=== PATIENT | female | born 1995 ===

== ENCOUNTER 2017-06-08 19:35 | Emergency (ER) | payer MEDICAID, OTHER ==
[2017-06-08 19:36] VITALS: BMI 47.8
[2017-06-08 19:49] VITALS: TEMP 97.7; O2SAT 97
[2017-06-08] MEDS ORDERED: Lidocaine 5% Patch TD STA (20:08)
[2017-06-08] MEDS ORDERED: Lidocaine 5% Patch TD ONE (20:14)
--- NOTE | 2017-06-08 20:31 | C.PDOC ---
History Of Present Illness 21 y/o female comes in for evaluation of lower back pain for 1 week. Patient is unsure of how the symptoms began. Patient was seen [facility] and was prescribed Flexeril and Ibuprofen with no relief. Patient also notes bruising to the left leg with an unknown cause. Denies fall, weakness, or numbness. No urinary symptoms. Time Seen by Provider: 06/08/17 19:56 Chief Complaint (Nursing): Medical Clearance History Per: Patient History/Exam Limitations: no limitations Onset/Duration Of Symptoms: Days Current Symptoms Are (Timing): Still Present Severity: Mild Recent travel outside of the [place]: No Additional History Per: Patient Past Medical History Reviewed: Historical Data, Nursing Documentation, Vital Signs Vital Signs: Last Vital Signs Temp 97.7 F 06/08/17 19:44 Pulse 69 06/08/17 20:36 Resp 20 06/08/17 20:36 BP 122/71 06/08/17 20:36 Pulse Ox 97 06/08/17 21:16 - Medical History PMH: HTN Surgical History: Tonsillectomy - [facility] MONITORING NOS (12/07/13) LOW CERVICAL (01/15/14) Family History: States: Unknown Family Hx - Social History Hx Alcohol Use: No Hx Substance Use: No - Immunization History Hx Tetanus Toxoid Vaccination: No Hx Influenza Vaccination: No Hx Pneumococcal Vaccination: No Review Of Systems Except As Marked, All Systems Reviewed And Found Negative. Constitutional: Negative for: Other (Fall) Genitourinary: Negative for: Dysuria, Frequency, Incontinence, Hematuria Musculoskeletal: Positive for: Back Pain (Lower back pain) Neurological: Negative for: Weakness, Numbness Physical Exam - Physical Exam Appears: Non-toxic, No Acute Distress, Other (Morbidly obese) Skin: Warm, Dry Head: Atraumatic, Normacephalic Eye(s): bilateral: Normal Inspection, EOMI Neck: Normal ROM Chest: Symmetrical Cardiovascular: Rhythm Regular, No Murmur Respiratory: Normal Breath Sounds, No Wheezing Back: Normal Inspection, No CVA Tenderness, No Vertebral Tenderness, Paraspinal Tenderness (lumbar) Extremity: Normal ROM, Capillary Refill, Other (varicose veins to the bilateral legs and ecchymosis to the bilateral legs) Pulses: Left Dorsalis Pedis: Normal, Right Dorsalis Pedis: Normal Neurological/Psych: Oriented x3, Normal Speech, Other (No focal deficit) Gait: Steady ED Course And Treatment O2 Sat by Pulse Oximetry: 97 Pulse Ox Interpretation: Normal Medical Decision Making Medical Decision Making: Plans: * Tylenol * Valium * Motrin * Lidoderm Re-eval: Patient reports feeling better and is now ambulatory without signs of discomfort. Patient advised to take analgesics. Patient stable for discharge Disposition Counseled Patient/Family Regarding: Diagnosis, Need For Followup, Rx Given - Disposition Referrals: Tc Huggins MD [Staff Provider] - Disposition: HOME/ ROUTINE Disposition Time: 20:29 Condition: STABLE Additional Instructions: Take Tylenol or Motrin alternating every 6 hours for pain Take Tramadol for more severe pain Apply heat to area for 15 minutes three times a day. Follow up with orthopedic if pain persists over one week. Prescriptions: traMADol [Ultram] 50 mg PO Q8 #115 tab Instructions: Acute Low Back Pain (DC) Forms: [facility] (S[place]i), Work Excuse - POA Present On Arrival: None - Clinical Impression Clinical Impression: Back strain - Scribe Statement The provider has reviewed the documentation as recorded by the Scribe Frank camilo All medical record entries made by the Scribe were at my direction and personally dictated by me. I have reviewed the chart and agree that the record accurately reflects my personal performance of the history, physical exam, medical decision making, and the department course for this patient. I have also personally directed, reviewed, and agree with the discharge instructions and disposition.
[2017-06-08 20:37] VITALS: BP 122/71; PULSE 69; RESP 20
== END 2017-06-08 20:44 | disposition home or self-care (01) ==
LOC: C.ER 19:35
DX: S39.012A Strain of muscle, fascia and tendon of lower back, initial encounter (principal); X58.XXXA Exposure to other specified factors, initial encounter